=== PATIENT | female | born 2000 | race Caucasian/White ===

== ENCOUNTER 2020-06-04 19:46 | Emergency (ER) | payer OTHER ==
[2020-06-04 20:22] LABS: Bilirubin Negative (Negative); Blood, Urine Negative (Negative); Clarity Clear (Clear); Glucose, Urine (Dipstick) Normal (Negative); Ketone, Urine Negative (Negative); Leukocyte Negative Leu/uL (Negative); Nitrite Negative (Negative); Protein, Urine (Dipstick) Negative (Neg-Trace); Specific Gravity, Urine 1.022 (1.002-1.036); Urobilinogen Normal mg/dL (Less than 2)
[2020-06-04 20:56] LABS: #Basophils 0.1 thou/uL (0.0-0.2); #Eosinphils 0.2 thou/uL (0.0-0.7); #Lymphocytes 3.1 thou/uL (1.20-3.40); #Monocytes 0.6 thou/uL (0.11-0.59); #Neutrophils 3.4 thou/uL (1.40-6.50); %Basophils 1.1 % (0.0-1.0); %Eosinophils 2.4 % (0.0-10.0); %Monocytes 8.6 % (0.0-4.0); %Neutrophils 45.9 % (31.0-61.0); Mean Corpuscular HGB CONC 33.9 g/dL (32.0-36.0); Mean Corpuscular Hemoglobin 31.3 pg (25.0-35.0); Mean Corpuscular Volume 92.4 fL (78.0-98.0); Mean Platelet Volume 9.3 fL (7.4-10.4); Platelet Count 244 thou/uL (130-400); RBC Distribution Width 12.2 % (11.5-14.5); Red Blood Cell (RBC) Count 3.84 mill/uL (4.00-5.20); White Blood Cell (WBC) Count 7.4 thou/uL (4.8-10.8)
[2020-06-04 21:03] LABS: ALT (SGPT) 15 U/L (8-55); AST (SGOT) 14 U/L (5-34); Albumin 4.3 g/dL (3.5-5.0); Alkaline Phosphatase 76 U/L (40-100); Anion Gap 13 mmol/L (10-20); BUN (Urea Nitrogen) 10 mg/dL (7.0-18.7); Bilirubin, Total 0.3 mg/dL (0.2-1.2); Calc. Creatinine Clearance 0 mL/min (70-130); Calcium 8.9 mg/dL (7.8-10.44); Carbon Dioxide 24 mmol/L (22-29); Chloride 103 mmol/L (98-107); Glucose 86 mg/dL (70-105); Potassium 3.6 mmol/L (3.5-5.1); Protein, Total 7.3 g/dL (6.0-8.3); Sodium 136 mmol/L (136-145)
--- NOTE | 2020-06-04 21:17 | ULT ---
TRANSABDOMINAL AND TRANSVAGINAL PELVIC ULTRASOUND WITH DOPPLER: 06/04/20 PROVIDED CLINICAL HISTORY: Pelvic pain, vaginal spotting. FINDINGS: There is an intrauterine gestational sac with a yolk sac. There is no associated pole evident a t this time. The right and left ovaries appear sonographically unremarkable. Color Doppler and spectr al analysis of the ovarian waveforms demonstrates normal flow bilaterally. There is a small amount of simple appearing free pelvic fluid. IMPRESSION: 1. Intrauterine gestational sac without identifiable pole. Correlation with follow-up beta HCG values is recommended. 2. Small amount of possibly physiologic free pelvic fluid. POS: CAITLIN
== END 2020-06-04 23:20 | disposition home or self-care (01) ==
LOC: ERS 19:46
DX: O20.0 Threatened abortion (principal); O16.1 Unspecified maternal hypertension, first trimester; Z3A.01 Less than 8 weeks gestation of pregnancy
CPT/HCPCS: 36415; 76856; 80053; 81003; 84702; 85025; 86900; 86901

== ENCOUNTER 2020-07-14 09:39 | Emergency (ER) | payer OTHER ==
[2020-07-14 10:26] LABS: #Basophils 0.1 thou/uL (0.0-0.2); #Eosinphils 0.1 thou/uL (0.0-0.7); #Lymphocytes 1.7 thou/uL (1.20-3.40); %Basophils 0.7 % (0.0-1.0); %Eosinophils 1.6 % (0.0-10.0); %Lymphocytes 19.2 % (28.0-48.0); %Monocytes 11.3 % (0.0-4.0); %Neutrophils 67.3 % (31.0-61.0); Hemoglobin 12.2 g/dL (12.0-16.0); Mean Corpuscular HGB CONC 34.1 g/dL (32.0-36.0); Mean Corpuscular Hemoglobin 31.5 pg (25.0-35.0); Mean Corpuscular Volume 92.2 fL (78.0-98.0); Mean Platelet Volume 8.5 fL (7.4-10.4); Platelet Count 261 thou/uL (130-400); RBC Distribution Width 12.5 % (11.5-14.5); Red Blood Cell (RBC) Count 3.86 mill/uL (4.00-5.20); White Blood Cell (WBC) Count 8.9 thou/uL (4.8-10.8)
[2020-07-14 10:45] LABS: ALT (SGPT) 9 U/L (8-55); AST (SGOT) 12 U/L (5-34); Albumin 4.3 g/dL (3.5-5.0); Alkaline Phosphatase 71 U/L (40-100); Anion Gap 12 mmol/L (10-20); BUN (Urea Nitrogen) 9 mg/dL (7.0-18.7); Bilirubin, Total 0.3 mg/dL (0.2-1.2); Calc. Creatinine Clearance 0 mL/min (70-130); Calcium 9.4 mg/dL (7.8-10.44); Carbon Dioxide 25 mmol/L (22-29); Chloride 105 mmol/L (98-107); Globulin 3.4 g/dL (2.4-3.5); Glucose 92 mg/dL (70-105); Potassium 4.4 mmol/L (3.5-5.1); Protein, Total 7.7 g/dL (6.0-8.3); Sodium 138 mmol/L (136-145)
[2020-07-14] MEDS ORDERED: Ondansetron PF 4 MG/2 ML Vial ONE (11:10)
[2020-07-14] MEDS ORDERED: Morphine 4 MG/ML VIAL ONE (11:10)
[2020-07-14] MEDS ORDERED: Ketorolac Tromethamine 30 MG/ML VIAL ONE (11:10)
[2020-07-14 11:18] LABS: Bilirubin Negative (Negative); Blood, Urine Negative (Negative); Clarity Clear (Clear); Glucose, Urine (Dipstick) Normal (Negative); Ketone, Urine Negative (Negative); Leukocyte Negative Leu/uL (Negative); Nitrite Negative (Negative); Protein, Urine (Dipstick) 10 mg/dL (Neg-Trace); Specific Gravity, Urine 1.027 (1.002-1.036); Urobilinogen Normal mg/dL (Less than 2); pH, Urine 7.5 (5.0-9.0)
[2020-07-14] MEDS ORDERED: Misoprostol 200 MCG TAB PO SCH (12:15)
[2020-07-14] MEDS ORDERED: Fentanyl 100 MCG/2 ML VIAL ONE (12:21)
--- NOTE | 2020-07-14 13:13 | ULT ---
TRANSABDOMINAL AND TRANSVAGINAL PELVIC ULTRASOUND: Date: 07/14/2020 INDICATION: History of on Wednesday with persistent vaginal bleeding and suprapubic pain. TECHNIQUE: Salgado scale, color Doppler, and spectral Doppler images were obtained via transabdominal and transvagi nal approach. FINDINGS: The uterus measures 9.8 x 5.1 x 6.7 cm. There is distention of the endometrial cavity with vasculariz ed heterogeneous but predominantly hyperechoic, debris. The endometrial stripe measures up to 2.4 cm. The right ovary measures 3.0 x 3.6 cm. Left ovary measures 2.5 x 2.0 cm. There is normal flow to bot h ovaries. There are two mildly prominent follicular cysts within the right ovary measuring 1.4 and 1 .3 cm. No free fluid is evident. IMPRESSION: Findings most consistent with retained products of conception within the endometrial canal. There is vascularized heterogeneous debris seen filling the anterior to mid aspect of the endometrial canal. POS: BH
--- NOTE | 2020-07-14 13:45 | CON ---
DATE OF CONSULTATION: 07/14/2020 CONSULTING PHYSICIAN: Dr. Ramires, Emergency Department. CHIEF COMPLAINT: Vaginal bleeding and cramping. HISTORY OF PRESENT ILLNESS: This is a 20-year-old G3, P1-0-1-1, who had an elective termination of on Wednesday. The patient reported she was about 9 weeks along and "could not bring another baby into her situation," so she found a place in [place] at [facility]. She reports she went on Wednesday, had an ultrasound and they measured the baby to be about 9 weeks with heart tones. She came back Wednesday and had what sounds like a suction D&C under conscious sedation. She reports she had minimal bleeding following that with some cramping, but her bleeding became heavier starting Wednesday and cramping became more severe today, so she came in. She denies any significant nausea, vomiting, changes in bowel habits or urination. She reports soaking a couple of pads, but her bleeding has significantly slowed at this point. REVIEW OF SYSTEMS: Negative for head, eyes, ears, nose, throat, cardiovascular, respiratory, GI, , neuropsych, musculoskeletal, skin, or constitutional symptoms other than mentioned above. PAST MEDICAL HISTORY: 1. Bipolar disorder. 2. Asthma. PAST SURGICAL HISTORY: x1, D&C x1. OB HISTORY: One prior early miscarriage, spontaneously resolved. One prior 6 months ago at term complicated by preeclampsia and this . MEDICATIONS: 1. Quetiapine. 2. Hydroxyzine. 3. Flovent as needed. ALLERGIES: LATEX. SOCIAL HISTORY: Positive for tobacco use approximately 3 cigarettes per day. Denies any alcohol or drug abuse. FAMILY HISTORY: Significant for ovarian cancer in her paternal grandmother. PHYSICAL EXAMINATION: VITAL SIGNS: Afebrile with normal vital signs. GENERAL: Awake, alert, no acute distress. Appears comfortable when talking. CHEST: Nonlabored. ABDOMEN: Soft, diffusely tender to palpation. No guarding. No rebound. PELVIC: With a closed cervix and minimal dark red blood in the vault. No active bleeding noted. No abnormal discharge noted. Bimanual revealed a mobile uterus with significant vaginal tenderness, but no obvious fundal tenderness. IMAGING STUDIES: Transvaginal ultrasound revealed thickened endometrial stripe with heterogeneous material consistent with retained products of conception. Ovaries visualized and within normal limits with good flow. No free fluid noted. LABORATORY DATA: WBC 8.9, hemoglobin 12.2, hematocrit 35.6, platelets 261,000. Chemistry unremarkable. HCG 16,235. Urine is negative. ASSESSMENT AND PLAN: A 20-year-old, G3, P1-0-1-1, status post elective termination of on Wednesday with retained products of conception. She does not have any significant vaginal bleeding at this time and does not appear toxic or infected. I discussed medical versus surgical management at this point with a recommendation of proceeding with medical management as she just had a D&C within the last few days. I would like to avoid further instrumenting her uterus at this point unless absolutely necessary. She agreed and Cytotec will be administered. She will go home with Tylenol 3 and ibuprofen with precautions. She already has followup scheduled with Saima Brice tomorrow at [facility] and she was advised to keep that appointment. All questions were answered. Job ID: [id number] [facility]
== END 2020-07-14 12:49 | disposition home or self-care (01) ==
LOC: ERS 09:39
DX: O03.4 Incomplete spontaneous abortion without complication (principal); F17.210 Nicotine dependence, cigarettes, uncomplicated
CPT/HCPCS: 36415; 51701; 76856; 80053; 81003; 84702; 85025; 86850; 86900; 86901; 96374; 96375; J1885; J2270; J2405; J3010

== ENCOUNTER 2020-10-07 12:32 | Emergency (ER) | payer OTHER ==
[2020-10-07 13:45] LABS: #Basophils 0.1 thou/uL (0.0-0.2); #Eosinphils 0.1 thou/uL (0.0-0.7); #Lymphocytes 3.1 thou/uL (1.20-3.40); #Monocytes 0.6 thou/uL (0.11-0.59); #Neutrophils 5.8 thou/uL (1.40-6.50); %Basophils 0.8 % (0.0-1.0); %Eosinophils 1.3 % (0.0-10.0); %Lymphocytes 31.9 % (28.0-48.0); %Monocytes 5.8 % (0.0-4.0); %Neutrophils 60.2 % (31.0-61.0); Hemoglobin 12.4 g/dL (12.0-16.0); Mean Corpuscular HGB CONC 33.8 g/dL (32.0-36.0); Mean Corpuscular Hemoglobin 31.5 pg (25.0-35.0); Mean Corpuscular Volume 93.1 fL (78.0-98.0); Platelet Count 259 thou/uL (130-400); RBC Distribution Width 12.6 % (11.5-14.5); Red Blood Cell (RBC) Count 3.94 mill/uL (4.00-5.20); White Blood Cell (WBC) Count 9.6 thou/uL (4.8-10.8)
[2020-10-07 13:50] LABS: BHCG - Serum Negative (NEGATIVE); Pregs Control Background? CLEAR/WHITE (CLR/WHITE); Pregs Control Bar Appear? YES (CONTROL BAR)
[2020-10-07 14:14] LABS: ALT (SGPT) 10 U/L (8-55); AST (SGOT) 14 U/L (5-34); Albumin 4.5 g/dL (3.5-5.0); Alkaline Phosphatase 80 U/L (40-100); Anion Gap 12 mmol/L (10-20); BUN (Urea Nitrogen) 11 mg/dL (7.0-18.7); Bilirubin, Total 0.2 mg/dL (0.2-1.2); Calc. Creatinine Clearance 0 mL/min (70-130); Calcium 9.6 mg/dL (7.8-10.44); Carbon Dioxide 23 mmol/L (22-29); Chloride 106 mmol/L (98-107); Globulin 3.5 g/dL (2.4-3.5); Glucose 80 mg/dL (70-105); Potassium 4.2 mmol/L (3.5-5.1); Sodium 137 mmol/L (136-145)
[2020-10-07 15:07] LABS: Bilirubin Negative (Negative); Blood, Urine Negative (Negative); Clarity Clear (Clear); Glucose, Urine (Dipstick) Normal (Negative); Ketone, Urine Negative (Negative); Leukocyte Negative Leu/uL (Negative); Nitrite Negative (Negative); Protein, Urine (Dipstick) Negative (Neg-Trace); Specific Gravity, Urine 1.007 (1.002-1.036); Urobilinogen Normal mg/dL (Less than 2); pH, Urine 6.5 (5.0-9.0)
[2020-10-09 23:48] LABS: Chlamydia by PCR Not Detected (NotDetected); GC by PCR Not Detected (NotDetected)
== END 2020-10-07 17:17 | disposition home or self-care (01) ==
LOC: ERS 12:32
DX: N93.9 Abnormal uterine and vaginal bleeding, unspecified (principal); F17.210 Nicotine dependence, cigarettes, uncomplicated; Z79.899 Other long term (current) drug therapy
CPT/HCPCS: 36415; 76856; 80053; 81003; 84703; 85025; 86850; 86900; 86901; 87480; 87491; 87510; 87591; 87660

== ENCOUNTER 2022-11-20 16:31 | Emergency (ER) | payer OTHER | END 2022-11-20 17:30 | LOC: ERS 16:31 | DX: Z53.21 Procedure and treatment not carried out due to patient leaving prior to being seen by health care provider (principal) ==

== ENCOUNTER 2023-03-10 14:30 | Outpatient (CLI) | payer BC | END 2023-03-10 14:31 | disposition home or self-care (01) | LOC: ULT 14:30 | PROVIDERS: ATTEND Advanced Practice Midwife | DX: R07.9 Chest pain, unspecified (principal); I08.8 Other rheumatic multiple valve diseases | CPT/HCPCS: 93306 ==